=== PATIENT | female | born 1990 | race Hispanic/Latino ===

== ENCOUNTER 2017-03-16 22:25 | Emergency (ER) | payer OTHER ==
[2017-03-16 22:32] VITALS: BP 144/88; PULSE 70; RESP 18; TEMP 98.4; O2SAT 99
[2017-03-16] MEDS ORDERED: Lidocaine 1% Inj (20ml) IJ STA (22:36)
[2017-03-16] MEDS ORDERED: Lidocaine 1% Inj (20ml) ONE (22:37)
--- NOTE | 2017-03-16 22:59 | ED PDOC ---
HPI: General Adult Time Seen by Provider: 03/16/17 22:33 Chief Complaint (Nursing): Abnormal Skin Integrity Chief Complaint (Provider): finger laceration History Per: Patient Additional Complaint(s): 26-year-old [id number] female presents with laceration to left thumb sustained when she was opening up a can and accidentally cut her finger. Patient applied pressure dressing and came right to ED. Tetanus is up-to-date. Patient denies any numbness or tingling to the affected area but does have mild pain. Past Medical History Reviewed: Historical Data, Nursing Documentation, Vital Signs Vital Signs: Last Vital Signs Temp 98.4 F 03/16/17 22:29 Pulse 70 03/16/17 22:29 Resp 18 03/16/17 22:29 BP 144/88 03/16/17 22:29 Pulse Ox 99 03/16/17 22:29 - Medical History PMH: No Chronic Diseases - Surgical History Surgical History: No Surg Hx - Family History Family History: States: No Known Family Hx - Living Arrangements Living Arrangements: With Family - Social History Current smoker - smoking cessation education provided: No Alcohol: None Drugs: Denies - Immunization History Hx Tetanus Toxoid Vaccination: Yes - Allergies Allergies/Adverse Reactions: Allergies Allergy/AdvReac Type Severity Reaction Status Date / Time No Known Allergies Allergy Verified 03/16/17 22:29 Review of Systems ROS Statement: Except As Marked, All Systems Reviewed And Found Negative Musculoskeletal: Positive for: Other (Laceration to left thumb) Physical Exam - Reviewed Nursing Documentation Reviewed: Yes Vital Signs Reviewed: Yes - Physical Exam Appears: Positive for: Well, Non-toxic, No Acute Distress Skin: Negative for: Rash Eye Exam: Positive for: Normal appearance Neck: Positive for: Normal Extremity: Positive for: Other (2 cm laceration noted to the finger pad of left thumb with mild active bleeding, normal distal sensation, fingernail intact, full rom of affected digit, no FB to wound) Neurologic/Psych: Positive for: Alert, Oriented - Laboratory Results Urine POC: Negative - ECG O2 Sat by Pulse Oximetry: 99 Pulse Ox Interpretation: Normal Medical Decision Making Medical Decision Makin-year-old female with left thumb laceration. Plan: test Laceration repair Please see procedure note. Patient given wound care instructions. Procedures - Laceration/Wound Repair Left thumb Wound Length (cm): 2 Wound's Depth, Shape: superficial Wound Explored: clean Irrigated w/ Saline (ccs): 20 Betadine Prep?: Yes Anesthesia: 1% Lidocaine Volume Anesthetic (ccs): 6 Wound Debrided: minimal Wound Repaired With: Sutures Suture Size/Type: 5:0, nylon Number of Sutures: 5 Layer Closure?: No Wound Complexity: Simple Sterile Dressing Applied?: Yes Splint Applied?: No Disposition - Clinical Impression Clinical Impression: Finger laceration - Patient ED Disposition Is Patient to be Admitted: No Counseled Patient/Family Regarding: Diagnosis, Need For Followup - Disposition Referrals: [facility] [Outside] Disposition: Routine/Home Disposition Time: 22:43 Condition: STABLE Additional Instructions: Keep wound clean and dry. Tylenol or Advil for pain as needed. Wash daily with soap and water and apply Neosporin once per day. Wound check 2-3 days, suture removal 10-14 days. Instructions: Finger Laceration (ED), Care For Your Stitches (ED)
== END 2017-03-16 23:19 | disposition home or self-care (01) ==
LOC: H.ER 22:25
DX: S61.012A Laceration without foreign body of left thumb without damage to nail, initial encounter (principal); W26.8XXA Contact with other sharp object(s), not elsewhere classified, initial encounter; Y92.89 Other specified places as the place of occurrence of the external cause

== ENCOUNTER 2017-03-21 11:49 | Emergency (ER) | payer OTHER ==
[2017-03-21 12:10] VITALS: BMI 18.6
--- NOTE | 2017-03-21 12:13 | ED PDOC ---
HPI: Wound Care - HPI Time Seen by Provider: 03/21/17 12:03 Chief Complaint (Provider): Wound check History Per: Patient Exam Limitations: no limitations Onset/Duration Of Symptoms: Days Current Symptoms Are (Timing): Still Present Additional Complaint(s): The patient is a 26yo female, presents to ED for re-evaluation of her wound, sustained on her left thumb 5 days ago. Patient returns today for a reevaluation. She denies any fever, chills, increased swelling, redness, discharge from the wound. She offers no other medical complaints. Past Medical History Reviewed: Historical Data, Nursing Documentation, Vital Signs - Medical History PMH: No Chronic Diseases - Surgical History Surgical History: No Surg Hx - Family History Family History: States: No Known Family Hx - Social History Current smoker - smoking cessation education provided: No Ex-Smoker (has not smoked in the last 12 months): No Alcohol: None Drugs: Denies - Immunization History Hx Tetanus Toxoid Vaccination: Yes - Allergies Allergies/Adverse Reactions: Allergies Allergy/AdvReac Type Severity Reaction Status Date / Time No Known Allergies Allergy Verified 03/16/17 22:29 Review of Systems ROS Statement: Except As Marked, All Systems Reviewed And Found Negative Constitutional: Negative for: Fever, Chills Musculoskeletal: Positive for: Other (denies increased swelling, redness or discharge from wound site ) Physical Exam - Reviewed Nursing Documentation Reviewed: Yes Vital Signs Reviewed: Yes - Physical Exam Appears: Positive for: Non-toxic, No Acute Distress Skin: Positive for: Warm, Dry Neck: Positive for: Supple Cardiovascular/Chest: Positive for: Regular Rate, Rhythm Extremity: Positive for: Capillary Refill (< 2 seconds), Other (well healing wound site, no increased swelling, erythema, discharge noted. no signs of infection.). Negative for: Deformity, Swelling Medical Decision Making Medical Decision Making: Time: 1208 Impression: Wound check Plan: -- Patient informed of physical exam findings and informed to continue her care regimen at home. Patient informed to follow up in 5 days for stitches removal. Stable for d/c home. Scribe Attestation: Documented by Lorin Woody acting as a scribe for MEME Tanner Provider Attestation: All medical record entries made by the Scribe were at my direction and personally dictated by me. I have reviewed the chart and agree that the record accurately reflects my personal performance of the history, physical exam, medical decision making, and the department course for this patient. I have also personally directed, reviewed, and agree with the discharge instructions and disposition. Disposition - Clinical Impression Clinical Impression: Visit for wound check - Disposition Disposition: Routine/Home Disposition Time: 12:08 Condition: STABLE Additional Instructions: Suture removal in 5 days. Instructions: Care For Your Stitches (ED)
== END 2017-03-21 12:28 | disposition home or self-care (01) ==
LOC: H.ER 11:49
DX: Z48.00 Encounter for change or removal of nonsurgical wound dressing (principal)